=== PATIENT | male | born 1980 | race Caucasian/White ===

== ENCOUNTER 2020-09-09 18:50 | Emergency (ER) | payer MEDICAID ==
[~2020-09-09] VITALS: Ht 182.9 cm; Wt 80.0 kg
[2020-09-09 20:50] LABS: BASOPHILS % 0.4 % (0.0-2.0); HEMATOCRIT. 38.1 % (42.0-52.0); HEMOGLOBIN. 12.9 g/dL (14.0-18.0); LYMPHOCYTES % 19.5 % (20.0-50.0); MEAN CORPUSCULAR HEMOGLOBIN 30.2 pg (28.0-32.0); MEAN CORPUSCULAR VOLUME 88.9 fL (80.0-94.0); MEAN PLATELET VOLUME 7.2 fl (7.4-10.4); MONOCYTES % 9.3 % (2.0-8.0); NEUTROPHILS % 68.8 % (40.0-76.0); PLATELET 338 x1000/uL (130-400); RED BLOOD CELL COUNT 4.28 mill/uL (4.7-6.1); RED CELL DISTRIBUTION WIDTH 14.4 % (11.6-14.6)
[2020-09-09 20:57] LABS: CHLORIDE 107 mEq/L (98-107)
[2020-09-09 21:00] LABS: ETHANOL BLOOD 88 mg/dL
[2020-09-09 23:04] LABS: CLARITY URINE CLEAR (CLEAR); COLOR URINE DARK YELLOW (YELLOW); KETONES URINE 1+ (NEGATIVE); LEUKOCYTE ESTERASE URINE TRACE (NEGATIVE); NITRITE URINE NEGATIVE (NEGATIVE); OCCULT BLOOD URINE NEGATIVE (NEGATIVE); PH URINE 5.5 (4.5-8.0); PROTEIN URINE TRACE (NEGATIVE); SPECIFIC GRAVITY URINE 1.029 (1.005-1.030)
[2020-09-09 23:17] LABS: *AMPHETAMINES SCREEN URINE PRESUMTIVE POSITIVE (NEGATIVE); *BARBITURATES SCREEN URINE NEGATIVE (NEGATIVE); *BENZODIAZEPINES SCREEN URINE PRESUMTIVE POSITIVE (NEGATIVE); *COCAINE SCREEN URINE NEGATIVE (NEGATIVE); CANNABINOID URINE SCREEN NEGATIVE (NEGATIVE); METHADONE URINE SCREEN NEGATIVE (NEGATIVE); OPIATES URINE SCREEN NEGATIVE (NEGATIVE); PHENCYCLIDINE URINE SCREEN NEGATIVE (NEGATIVE)
[2020-09-10] MEDS ORDERED: LORAZEPAM 1MG TABLET PO ONE (00:15)
[2020-09-10 07:45] VITALS: BP 149/89
== END 2020-09-10 10:40 | disposition home or self-care (01) ==
LOC: ER 18:50
DX: R45.851 Suicidal ideations (principal); F15.10 Other stimulant abuse, uncomplicated; I10 Essential (primary) hypertension
CPT/HCPCS: 36415; 73130; 80048; 80305; 80307; 80320; 80329; 81003; 85025; 99284; G0480

== ENCOUNTER 2020-09-10 14:25 | Emergency (ER) | payer MEDICAID ==
[~2020-09-10] VITALS: Ht 185.4 cm; Wt 76.0 kg
[2020-09-10] MEDS ORDERED: LORAZEPAM 1MG TABLET PO ONE (15:15)
[2020-09-10] MEDS: BENZTROPINE MESYLATE 1MG TABLET PO SCH (21:00)
[2020-09-10] MEDS: LORAZEPAM 1MG TABLET PO SCH (22:00)
[2020-09-10 23:19] LABS: BASOPHILS % 0.4 % (0.0-2.0); EOSINOPHILS % 4.7 % (0.0-5.0); HEMOGLOBIN. 12.8 g/dL (14.0-18.0); LYMPHOCYTES % 37.3 % (20.0-50.0); MEAN CORPUSCULAR HEMOGLOBIN 30.4 pg (28.0-32.0); MEAN CORPUSCULAR VOLUME 89.9 fL (80.0-94.0); MEAN PLATELET VOLUME 7.3 fl (7.4-10.4); MONOCYTES % 7.5 % (2.0-8.0); NEUTROPHILS % 50.1 % (40.0-76.0); PLATELET 336 x1000/uL (130-400); RED BLOOD CELL COUNT 4.23 mill/uL (4.7-6.1); RED CELL DISTRIBUTION WIDTH 14.4 % (11.6-14.6)
[2020-09-10 23:20] LABS: CHLORIDE 110 mEq/L (98-107)
[2020-09-10 23:28] LABS: ETHANOL BLOOD < 10 mg/dL
[2020-09-11 01:53] LABS: *AMPHETAMINES SCREEN URINE PRESUMTIVE POSITIVE (NEGATIVE); *BARBITURATES SCREEN URINE NEGATIVE (NEGATIVE); *BENZODIAZEPINES SCREEN URINE NEGATIVE (NEGATIVE); *COCAINE SCREEN URINE NEGATIVE (NEGATIVE); METHADONE URINE SCREEN NEGATIVE (NEGATIVE); OPIATES URINE SCREEN NEGATIVE (NEGATIVE)
[2020-09-11 01:54] LABS: CANNABINOID URINE SCREEN NEGATIVE (NEGATIVE); PHENCYCLIDINE URINE SCREEN NEGATIVE (NEGATIVE)
[2020-09-11] MEDS: OLANZAPINE 5MG TABLET ODT PO SCH (09:25)
[2020-09-11] MEDS: LORAZEPAM 1MG TABLET PO SCH (09:25)
[2020-09-11] MEDS: BENZTROPINE MESYLATE 1MG TABLET PO SCH ×2 (09:36→19:15)
[2020-09-12] MEDS: LORAZEPAM 1MG TABLET PO SCH ×2 (08:50→20:27)
[2020-09-12] MEDS: OLANZAPINE 5MG TABLET ODT PO SCH ×2 (08:50→20:27)
[2020-09-12] MEDS: BENZTROPINE MESYLATE 1MG TABLET PO SCH (09:03)
[2020-09-13 06:50] VITALS: BP 115/59
== END 2020-09-13 16:00 | disposition home or self-care (01) ==
LOC: ER 14:38
DX: R45.851 Suicidal ideations (principal); F15.10 Other stimulant abuse, uncomplicated; F20.9 Schizophrenia, unspecified; M79.89 Other specified soft tissue disorders; Z75.1 Person awaiting admission to adequate facility elsewhere; Z59.0 Homelessness; F19.10 Other psychoactive substance abuse, uncomplicated; Z20.822 Contact with and (suspected) exposure to COVID-19
CPT/HCPCS: 36415; 80048; 80307; 80320; 80329; 85025; 87635; 99285; G0480